=== PATIENT | male | born 1995 | race African-American/Black ===

== ENCOUNTER 2023-09-22 08:48 | Outpatient (RCR) | payer OTHER | END 2023-10-11 | LOC: WSOH | DX: S66.911D Strain of unspecified muscle, fascia and tendon at wrist and hand level, right hand, subsequent encounter (principal); S66.912D Strain of unspecified muscle, fascia and tendon at wrist and hand level, left hand, subsequent encounter; Y99.0 Civilian activity done for income or pay ==